=== PATIENT | male | born 1945 | race Caucasian/White ===

== ENCOUNTER 2019-11-01 11:38 | Inpatient (IN) ==
[2019-11-01] MEDS ORDERED: Acetaminophen 325 MG TABLET PO PRN (14:41)
[2019-11-01] MEDS ORDERED: Naloxone 0.4 MG/ML INJ IVP PRN (14:41)
[2019-11-01] MEDS ORDERED: Ondansetron 4 MG/2 ML VIAL IVP PRN (14:41)
[2019-11-01 16:42] LABS: Basophils % 0.1 %; Lymphocytes % 2.7 %
[2019-11-01 16:44] LABS: Hematocrit 39.8 % (37.5-50.1); Hemoglobin 13.2 g/dL (12.9-16.9); Immature Granulocytes % 1.9 % (0-4); Lymphocytes # 0.8 K/mcL (0.6-4.6); Mean Corpuscular HGB Conc 33.2 g/dL (31.6-35.5); Mean Corpuscular Hemoglobin 30.3 pg (28.0-33.3); Mean Corpuscular Volume 91.5 fL (83.0-100.0); Mean Platelet Volume 10.7 fL (9.4-12.4); Monocytes # 1.5 K/mcL (0.0-1.3); Neutrophils # 26.3 K/mcL (1.6-8.9); Platelet Count 241 K/mcL (140-400); Red Blood Count 4.35 M/mcL (4.19-5.50); Red Cell Distribution Width 15.3 % (11.5-14.5); Segmented Neutrophils % 90.3 %; White Blood Count 29.1 K/mcL (4.3-11.1)
[2019-11-01 16:49] LABS: INR 0.9; Prothrombin Time 10.5 Seconds (9.4-12.1)
[2019-11-01 17:03] LABS: Alanine Aminotransferase 17 Units/L (7-52); Albumin 3.6 g/dL (3.5-5.7); Albumin/Globulin Ratio 1.4 (1.1-2.2); Alkaline Phosphatase 47 Units/L (34-104); Aspartate Amino Transferase 23 Units/L (13-39); BUN/Creatinine Ratio 55 (6-26); Bilirubin,Direct 0.1 mg/dL (0.0-0.2); Bilirubin,Indirect 0.2 mg/dL (0.0-1.0); Bilirubin,Total 0.3 mg/dL (0.3-1.0); Blood Urea Nitrogen 42 mg/dL (8-23); Calcium 9.1 mg/dL (8.6-10.3); Carbon Dioxide 28 mEq/L (23-29); Chloride 96 mEq/L (98-107); Globulin 2.6 g/dL (2.4-3.5); Glucose 98 mg/dL (70-105); Magnesium 2.1 mg/dL (1.6-2.6); Osmolality,Calculated 282 (280-300); Potassium 5.4 mEq/L (3.5-5.1); Sodium 131 mEq/L (136-145); Total Protein 6.2 g/dL (6.4-8.9); eGFR For African Americans > 60 (> 60); eGFR For Non-African Americans > 60 (> 60)
[2019-11-01] MEDS ORDERED: Pantoprazole 40 MG VIAL IVP ONE (17:53)
[2019-11-01] MEDS: MethylPREDNISolone 40 MG/ML VIAL IVP SCH (18:15)
[2019-11-01] MEDS ORDERED: Levalbuterol Neb 0.63 MG/3 ML ONE (18:26)
[2019-11-01] MEDS: Levalbuterol Neb 0.63 MG/3 ML IH SCH ×2 (18:27→22:01)
[2019-11-01 19:40] LABS: Adenovirus Not Detected (Not Detect); Bordetella Pertussis Not Detected (Not Detect); Chlamydophila pneumoniae Not Detected (Not Detect); Coronavirus 229E Not Detected (Not Detect); Coronavirus HKU1 Not Detected (Not Detect); Coronavirus NL63 Not Detected (Not Detect); Coronavirus OC43 Not Detected (Not Detect); Human Metapneumovirus Not Detected (Not Detect); Human Rhinovirus/Enterovirus Not Detected (Not Detect); Influenza B Not Detected (Not Detect); Mycoplasma pneumoniae Not Detected (Not Detect); Parainfluenza Virus 1 Not Detected (Not Detect); Parainfluenza Virus 2 Not Detected (Not Detect); Parainfluenza Virus 3 Not Detected (Not Detect); Parainfluenza Virus 4 Not Detected (Not Detect); Respiratory Syncytial Virus Not Detected (Not Detect)
[2019-11-01 19:44] LABS: Influenza A Subtype 2009 H1 DETECTED (Not Detect)
[2019-11-01] MEDS ORDERED: Levalbuterol Neb 0.63 MG/3 ML IH SCH (22:00)
[2019-11-01] MEDS: Budesonide Neb 0.5 MG/2 ML IH SCH (22:01)
[2019-11-02 01:01] LABS: Basophils % 0.1 %; Immature Granulocytes % 1.7 % (0-4); Monocytes % 4.5 %; Red Cell Distribution Width 15.4 % (11.5-14.5)
[2019-11-02 01:03] LABS: Hematocrit 39.4 % (37.5-50.1); Hemoglobin 13.8 g/dL (12.9-16.9); Lymphocytes # 0.7 K/mcL (0.6-4.6); Lymphocytes % 2.9 %; Mean Corpuscular Volume 88.5 fL (83.0-100.0); Mean Platelet Volume 10.3 fL (9.4-12.4); Neutrophils # 23.2 K/mcL (1.6-8.9); Platelet Count 247 K/mcL (140-400); Red Blood Count 4.45 M/mcL (4.19-5.50); Segmented Neutrophils % 90.8 %; White Blood Count 25.6 K/mcL (4.3-11.1)
[2019-11-02 01:04] LABS: INR 0.9; Prothrombin Time 10.2 Seconds (9.4-12.1)
[2019-11-02 01:08] LABS: Monocytes # 1.2 K/mcL (0.0-1.3)
[2019-11-02 01:23] LABS: BUN/Creatinine Ratio 43 (6-26); Blood Urea Nitrogen 34 mg/dL (8-23); Calcium 8.9 mg/dL (8.6-10.3); Carbon Dioxide 28 mEq/L (23-29); Chloride 99 mEq/L (98-107); Glucose 124 mg/dL (70-105); Magnesium 2.1 mg/dL (1.6-2.6); Osmolality,Calculated 287 (280-300); Potassium 4.6 mEq/L (3.5-5.1); Sodium 134 mEq/L (136-145); eGFR For African Americans > 60 (> 60); eGFR For Non-African Americans > 60 (> 60)
[2019-11-02 01:41] LABS: Platelet Estimate Normal (Normal)
[2019-11-02] MEDS: Levalbuterol Neb 0.63 MG/3 ML IH SCH ×4 (03:55→22:08)
[2019-11-02] MEDS: *HR* Heparin 5,000 UNIT/ML VIAL SQ SCH ×2 (06:33→13:44)
[2019-11-02] MEDS: MethylPREDNISolone 40 MG/ML VIAL IVP SCH ×2 (06:33→17:11)
[2019-11-02] MEDS: Nicotine 14 MG PATCH.TD24 TD SCH (09:13)
[2019-11-02] MEDS: Ipratropium Neb 0.5 MG NEBULIZER IH SCH ×3 (10:39→22:07)
[2019-11-02] MEDS: Budesonide Neb 0.5 MG/2 ML IH SCH ×2 (10:39→22:07)
[2019-11-02] MEDS: Azithromycin 250 MG TABLET PO SCH (13:43)
[2019-11-02] MEDS ORDERED: *HR* LORazepam 2 MG/ML VIAL IVP ONE (14:11)
[2019-11-02] MEDS ORDERED: Furosemide 40 MG/4 ML VIAL IVP ONE (16:58)
[2019-11-02] MEDS ORDERED: *HR* LORazepam 2 MG/ML VIAL IVP PRN (17:37)
[2019-11-02] MEDS: *HR* Metoprolol 5 MG/5 ML VIAL IVP PRN (18:02)
[2019-11-02] MEDS ORDERED: Perflutren Lipid Microsphere 1.3 ML in 0.9 % Sodium Chloride 8.7 ML IVP ONE (18:16)
[2019-11-02] MEDS ORDERED: *HR* Heparin 5,000 UNIT/ML VIAL IVP ONE (18:37)
[2019-11-02] MEDS ORDERED: *HR* Heparin 5,000 UNIT/ML VIAL IVP PRN ×2 (18:37)
[2019-11-02] MEDS: Heparin 25,000 UNIT/250 ML D5W 25,000 UNIT/250 ML IV.SOLN IVC SCH (19:12)
[2019-11-02 19:13] LABS: Red Cell Distribution Width 15.2 % (11.5-14.5)
[2019-11-02 19:15] LABS: Hematocrit 41.3 % (37.5-50.1); Hemoglobin 13.9 g/dL (12.9-16.9); Mean Corpuscular HGB Conc 33.7 g/dL (31.6-35.5); Mean Corpuscular Hemoglobin 30.7 pg (28.0-33.3); Mean Corpuscular Volume 91.2 fL (83.0-100.0); Mean Platelet Volume 10.6 fL (9.4-12.4); Platelet Count 271 K/mcL (140-400); Red Blood Count 4.53 M/mcL (4.19-5.50)
[2019-11-02 19:16] LABS: Heparin anti-factor XA UFH 0.24 IU/mL (0.30-0.70)
[2019-11-02 19:17] LABS: INR 0.9
[2019-11-03 02:45] LABS: BUN/Creatinine Ratio 41 (6-26); Blood Urea Nitrogen 34 mg/dL (8-23); Calcium 8.9 mg/dL (8.6-10.3); Carbon Dioxide 32 mEq/L (23-29); Chloride 95 mEq/L (98-107); Glucose 139 mg/dL (70-105); Osmolality,Calculated 290 (280-300); Potassium 4.4 mEq/L (3.5-5.1); Sodium 135 mEq/L (136-145); eGFR For African Americans > 60 (> 60); eGFR For Non-African Americans > 60 (> 60)
[2019-11-03 02:56] LABS: Basophils % 0.1 %; Hematocrit 38.9 % (37.5-50.1); Hemoglobin 12.9 g/dL (12.9-16.9); Lymphocytes # 0.8 K/mcL (0.6-4.6); Lymphocytes % 4.4 %; Mean Corpuscular HGB Conc 33.2 g/dL (31.6-35.5); Mean Corpuscular Hemoglobin 30.4 pg (28.0-33.3); Mean Corpuscular Volume 91.5 fL (83.0-100.0); Mean Platelet Volume 11.1 fL (9.4-12.4); Monocytes # 0.9 K/mcL (0.0-1.3); Monocytes % 4.8 %; Neutrophils # 16.7 K/mcL (1.6-8.9); Platelet Count 237 K/mcL (140-400); Red Blood Count 4.25 M/mcL (4.19-5.50); Red Cell Distribution Width 15.2 % (11.5-14.5); Segmented Neutrophils % 89.7 %; White Blood Count 18.6 K/mcL (4.3-11.1)
[2019-11-03] MEDS: Levalbuterol Neb 0.63 MG/3 ML IH SCH ×4 (04:10→22:21)
[2019-11-03] MEDS: Ipratropium Neb 0.5 MG NEBULIZER IH SCH ×4 (04:10→22:21)
[2019-11-03] MEDS: MethylPREDNISolone 40 MG/ML VIAL IVP SCH ×2 (06:19→17:03)
[2019-11-03] MEDS: Azithromycin 250 MG TABLET PO SCH (09:40)
[2019-11-03] MEDS: Nicotine 14 MG PATCH.TD24 TD SCH (09:40)
[2019-11-03] MEDS: Budesonide Neb 0.5 MG/2 ML IH SCH ×2 (10:32→22:21)
[2019-11-03] MEDS ORDERED: DilTIAZem CD (24hr) 180 MG CAP.ER.24H PO SCH (13:15)
[2019-11-03] MEDS: *HR* Metoprolol 5 MG/5 ML VIAL IVP PRN (17:03)
[2019-11-03] MEDS ORDERED: *HR* Warfarin 3 MG TABLET PO ONE (18:00)
[2019-11-03] MEDS ORDERED: Warfarin perPT PO PRN (18:00)
[2019-11-04 02:34] LABS: Basophils % 0.1 %; Hematocrit 37.1 % (37.5-50.1); Hemoglobin 12.8 g/dL (12.9-16.9); Immature Granulocytes % 0.6 % (0-4); Mean Corpuscular HGB Conc 34.5 g/dL (31.6-35.5); Mean Corpuscular Hemoglobin 30.5 pg (28.0-33.3); Mean Corpuscular Volume 88.5 fL (83.0-100.0); Mean Platelet Volume 11.3 fL (9.4-12.4); Monocytes # 0.9 K/mcL (0.0-1.3); Monocytes % 6.1 %; Neutrophils # 12.2 K/mcL (1.6-8.9); Platelet Count 264 K/mcL (140-400); Red Blood Count 4.19 M/mcL (4.19-5.50); Red Cell Distribution Width 14.9 % (11.5-14.5); Segmented Neutrophils % 86.2 %; White Blood Count 14.2 K/mcL (4.3-11.1)
[2019-11-04 02:53] LABS: BUN/Creatinine Ratio 46 (6-26); Blood Urea Nitrogen 33 mg/dL (8-23); Calcium 8.8 mg/dL (8.6-10.3); Carbon Dioxide 32 mEq/L (23-29); Glucose 131 mg/dL (70-105); Osmolality,Calculated 289 (280-300); Potassium 4.8 mEq/L (3.5-5.1); Sodium 135 mEq/L (136-145); eGFR For African Americans > 60 (> 60); eGFR For Non-African Americans > 60 (> 60)
[2019-11-04 02:55] LABS: Chloride 94 mEq/L (98-107)
[2019-11-04] MEDS: Ipratropium Neb 0.5 MG NEBULIZER IH SCH ×4 (03:54→22:05)
[2019-11-04] MEDS: Levalbuterol Neb 0.63 MG/3 ML IH SCH ×4 (03:55→22:05)
[2019-11-04] MEDS: MethylPREDNISolone 40 MG/ML VIAL IVP SCH ×2 (05:06→17:25)
[2019-11-04] MEDS: Azithromycin 250 MG TABLET PO SCH (08:17)
[2019-11-04] MEDS: Aspirin Enteric Coated 81 MG Tablet PO SCH (08:17)
[2019-11-04] MEDS: Nicotine 14 MG PATCH.TD24 TD SCH (08:18)
[2019-11-04] MEDS: DilTIAZem CD (24hr) 240 MG CAP.ER.24H PO SCH (08:18)
[2019-11-04] MEDS: Budesonide Neb 0.5 MG/2 ML IH SCH ×2 (10:55→22:05)
[2019-11-04] MEDS ORDERED: Furosemide 20 MG/2 ML VIAL IVP ONE (13:28)
[2019-11-04] MEDS: Heparin 25,000 UNIT/250 ML D5W 25,000 UNIT/250 ML IV.SOLN IVC SCH ×2 (13:55→21:28)
[2019-11-04] MEDS ORDERED: *HR* Warfarin 3 MG TABLET PO ONE (18:00)
[2019-11-05 00:35] LABS: Basophils % 0.3 %; Hematocrit 37.3 % (37.5-50.1); Hemoglobin 12.4 g/dL (12.9-16.9); Immature Granulocytes % 0.7 % (0-4); Lymphocytes # 0.8 K/mcL (0.6-4.6); Lymphocytes % 5.5 %; Mean Corpuscular HGB Conc 33.2 g/dL (31.6-35.5); Mean Corpuscular Hemoglobin 30.3 pg (28.0-33.3); Mean Corpuscular Volume 91.2 fL (83.0-100.0); Mean Platelet Volume 10.5 fL (9.4-12.4); Monocytes # 0.5 K/mcL (0.0-1.3); Monocytes % 3.2 %; Neutrophils # 13.2 K/mcL (1.6-8.9); Platelet Count 250 K/mcL (140-400); Red Blood Count 4.09 M/mcL (4.19-5.50); Red Cell Distribution Width 14.5 % (11.5-14.5); Segmented Neutrophils % 90.3 %; White Blood Count 14.6 K/mcL (4.3-11.1)
[2019-11-05 00:36] LABS: INR 1.5
[2019-11-05 00:45] LABS: BUN/Creatinine Ratio 44 (6-26); Blood Urea Nitrogen 31 mg/dL (8-23); Calcium 8.7 mg/dL (8.6-10.3); Carbon Dioxide 31 mEq/L (23-29); Chloride 93 mEq/L (98-107); Glucose 205 mg/dL (70-105); Osmolality,Calculated 280 (280-300); Potassium 4.4 mEq/L (3.5-5.1); Sodium 129 mEq/L (136-145); eGFR For African Americans > 60 (> 60); eGFR For Non-African Americans > 60 (> 60)
[2019-11-05 01:12] LABS: Triiodothyronine (T3) Free 2.31 pg/mL (2.50-3.90)
[2019-11-05 01:17] LABS: Triiodothyronine (T3) Total 0.76 ng/mL (0.87-1.78)
[2019-11-05] MEDS: Ipratropium Neb 0.5 MG NEBULIZER IH SCH ×4 (03:46→21:46)
[2019-11-05] MEDS: Levalbuterol Neb 0.63 MG/3 ML IH SCH ×4 (03:46→21:46)
[2019-11-05] MEDS: MethylPREDNISolone 40 MG/ML VIAL IVP SCH ×2 (05:51→17:22)
[2019-11-05] MEDS: DilTIAZem CD (24hr) 240 MG CAP.ER.24H PO SCH (07:48)
[2019-11-05] MEDS: Nicotine 14 MG PATCH.TD24 TD SCH (07:48)
[2019-11-05] MEDS: Azithromycin 250 MG TABLET PO SCH (07:48)
[2019-11-05] MEDS: Aspirin Enteric Coated 81 MG Tablet PO SCH (07:48)
[2019-11-05] MEDS: 0.9 % Sodium Chloride 1,000 ML IVC SCH (09:47)
[2019-11-05] MEDS ORDERED: Furosemide 20 MG/2 ML VIAL IVP ONE (10:29)
[2019-11-05] MEDS: Budesonide Neb 0.5 MG/2 ML IH SCH ×2 (10:50→21:46)
[2019-11-05 17:13] LABS: BUN/Creatinine Ratio 38 (6-26); Blood Urea Nitrogen 28 mg/dL (8-23); Calcium 8.9 mg/dL (8.6-10.3); Carbon Dioxide 30 mEq/L (23-29); Chloride 94 mEq/L (98-107); Glucose 146 mg/dL (70-105); Osmolality,Calculated 276 (280-300); Potassium 4.7 mEq/L (3.5-5.1); Sodium 129 mEq/L (136-145); eGFR For African Americans > 60 (> 60); eGFR For Non-African Americans > 60 (> 60)
[2019-11-05] MEDS ORDERED: *HR* Warfarin 3 MG TABLET PO ONE (18:00)
[2019-11-05] MEDS: Heparin 25,000 UNIT/250 ML D5W 25,000 UNIT/250 ML IV.SOLN IVC SCH (20:15)
[2019-11-06 02:10] LABS: INR 3.3
[2019-11-06 02:13] LABS: Basophils # 0.1 K/mcL (0.0-0.2); Basophils % 0.3 %; Hematocrit 36.5 % (37.5-50.1); Hemoglobin 12.3 g/dL (12.9-16.9); Immature Granulocytes % 1.8 % (0-4); Lymphocytes # 1.1 K/mcL (0.6-4.6); Lymphocytes % 5.3 %; Mean Corpuscular HGB Conc 33.7 g/dL (31.6-35.5); Mean Corpuscular Hemoglobin 30.4 pg (28.0-33.3); Mean Corpuscular Volume 90.1 fL (83.0-100.0); Mean Platelet Volume 10.9 fL (9.4-12.4); Monocytes # 0.8 K/mcL (0.0-1.3); Monocytes % 3.8 %; Neutrophils # 18.1 K/mcL (1.6-8.9); Platelet Count 273 K/mcL (140-400); Red Blood Count 4.05 M/mcL (4.19-5.50); Red Cell Distribution Width 14.2 % (11.5-14.5); Segmented Neutrophils % 88.8 %; White Blood Count 20.4 K/mcL (4.3-11.1)
[2019-11-06 02:23] LABS: BUN/Creatinine Ratio 41 (6-26); Blood Urea Nitrogen 28 mg/dL (8-23); Calcium 8.7 mg/dL (8.6-10.3); Carbon Dioxide 26 mEq/L (23-29); Chloride 96 mEq/L (98-107); Glucose 130 mg/dL (70-105); Osmolality,Calculated 275 (280-300); Potassium 4.6 mEq/L (3.5-5.1); Sodium 129 mEq/L (136-145); eGFR For African Americans > 60 (> 60); eGFR For Non-African Americans > 60 (> 60)
[2019-11-06] MEDS: 0.9 % Sodium Chloride 1,000 ML IVC SCH (02:30)
[2019-11-06] MEDS: Levalbuterol Neb 0.63 MG/3 ML IH SCH ×2 (03:13→10:10)
[2019-11-06] MEDS: Ipratropium Neb 0.5 MG NEBULIZER IH SCH ×2 (03:13→10:10)
[2019-11-06] MEDS: MethylPREDNISolone 40 MG/ML VIAL IVP SCH (06:17)
[2019-11-06] MEDS ORDERED: 0.9 % Sodium Chloride 1,000 ML IVC SCH (06:34)
[2019-11-06] MEDS: Azithromycin 250 MG TABLET PO SCH (07:08)
[2019-11-06] MEDS: Aspirin Enteric Coated 81 MG Tablet PO SCH (07:08)
[2019-11-06] MEDS: Nicotine 14 MG PATCH.TD24 TD SCH (07:08)
[2019-11-06] MEDS: DilTIAZem CD (24hr) 240 MG CAP.ER.24H PO SCH (07:08)
[2019-11-06 07:47] VITALS: BP 151/78
[2019-11-06] MEDS: Budesonide Neb 0.5 MG/2 ML IH SCH (10:09)
== END 2019-11-06 10:54 | disposition home or self-care (01) | DRG 193 ==
LOC: 2NNU → SUATTDRO 14:41 → 2ANU 11-04 14:53
PROVIDERS: ADMIT Pharmacist; ATTEND Internal Medicine

== ENCOUNTER 2022-02-10 08:30 | Inpatient (IN) ==
[2022-02-10] MEDS ORDERED: *HR* Rocuronium Bromide 50 MG/5 ML VIAL ONE (08:31)
[2022-02-10] MEDS ORDERED: *HR* Propofol 200 MG/20 ML VIAL IVP ONE (08:31)
[2022-02-10] MEDS ORDERED: Lidocaine HCL 4 ML Topical Solution (Laryng-O-Jet Kit Sterile Pak) TP ONE (08:31)
[2022-02-10] MEDS ORDERED: Lidocaine -MPF 2% 2 ML VIAL ONE (08:31)
[2022-02-10] MEDS ORDERED: Ondansetron 4 MG/2 ML VIAL ONE (08:31)
[2022-02-10] MEDS ORDERED: *HR* Succinylcholine 200 MG/10 ML VIAL IVP ONE (08:31)
[2022-02-10] MEDS: Ringers Solution, Lactated 1,000 ML IVC SCH (09:25)
[2022-02-10] MEDS ORDERED: *HR* FentaNYL (PF) 100 MCG/2 ML VIAL ONE (10:15)
[2022-02-10] MEDS ORDERED: EPHEDrine 50 MG/ML VIAL ONE (10:28)
[2022-02-10] MEDS ORDERED: Naloxone 0.4 MG/ML INJ IVP PRN (15:41)
[2022-02-10] MEDS ORDERED: Ipratropium Neb 0.5 MG NEBULIZER IH SCH (16:00)
[2022-02-10] MEDS ORDERED: Levalbuterol Neb 0.63 MG/3 ML IH SCH (16:00)
[2022-02-10] MEDS ORDERED: Lidocaine -MPF 1% 5 ML AMPUL ONE (16:04)
[2022-02-10] MEDS ORDERED: *HR* FentaNYL (PF) 100 MCG/2 ML VIAL IVP ONE (16:15)
[2022-02-10] MEDS ORDERED: *HR* FentaNYL (PF) 100 MCG/2 ML VIAL IVP PRN (17:04)
[2022-02-10] MEDS ORDERED: *HR* Warfarin 3 MG TABLET PO SCH (18:00)
[2022-02-10] MEDS: *HR* Heparin 5,000 UNIT/ML VIAL SQ SCH ×2 (18:20→20:29)
[2022-02-11] MEDS: Ipratropium/Albuterol Neb 3 ML IH SCH ×4 (04:04→22:32)
[2022-02-11 04:30] LABS: Hematocrit 44.2 % (37.5-50.1); Hemoglobin 14.8 g/dL (12.9-16.9); Mean Corpuscular HGB Conc 33.5 g/dL (31.6-35.5); Mean Corpuscular Hemoglobin 30.2 pg (28.0-33.3); Mean Corpuscular Volume 90.2 fL (83.0-100.0); Mean Platelet Volume 10.7 fL (9.4-12.4); Platelet Count 277 K/mcL (140-400); White Blood Count 20.9 K/mcL (4.3-11.1)
[2022-02-11 04:44] LABS: BUN/Creatinine Ratio 27 (6-26); Blood Urea Nitrogen 27 mg/dL (8-23); Calcium 9.5 mg/dL (8.6-10.3); Carbon Dioxide 29 mEq/L (23-29); Chloride 101 mEq/L (98-107); Glucose 122 mg/dL (70-105); Osmolality,Calculated 292 (280-300); Potassium 5.5 mEq/L (3.5-5.1); Sodium 138 mEq/L (136-145); eGFR For African Americans > 60 (> 60); eGFR For Non-African Americans > 60 (> 60)
[2022-02-11] MEDS: Ringers Solution, Lactated 1,000 ML IVC SCH (05:27)
[2022-02-11] MEDS ORDERED: Insulin Human Regular 5 UNIT in 0.9 % Sodium Chloride 10 ML IV ONE (05:53)
[2022-02-11] MEDS ORDERED: Calcium Gluconate 1gm/50mL 1 GM/50 ML BAG IVPB ONE (05:53)
[2022-02-11] MEDS ORDERED: *HR* Dextrose 50 % in Water (Syg) 50 ML SYRINGE IVP ONE (05:54)
[2022-02-11] MEDS ORDERED: Nicotine 14 MG PATCH.TD24 TD SCH (09:00)
[2022-02-11] MEDS ORDERED: Aspirin Enteric Coated 81 MG Tablet PO SCH (09:00)
[2022-02-11] MEDS ORDERED: DilTIAZem CD (24hr) 240 MG CAP.ER.24H PO SCH (09:00)
[2022-02-11] MEDS ORDERED: lisinopriL 10 MG TABLET PO SCH (09:00)
[2022-02-11] MEDS ORDERED: Acetaminophen 325 MG TABLET PO PRN (09:04)
[2022-02-11] MEDS ORDERED: Budesonide/Formoterol 160/4.5 1 PUFF INH IH SCH (10:00)
[2022-02-11] MEDS ORDERED: Naloxone 0.4 MG/ML INJ IVP PRN (10:31)
[2022-02-11] MEDS ORDERED: *HR* FentaNYL (PF) 100 MCG/2 ML VIAL IVP PRN (10:31)
[2022-02-11] MEDS ORDERED: *HR* Warfarin 3 MG TABLET PO SCH (18:00)
[2022-02-11] MEDS ORDERED: Apixaban 5 MG TABLET PO SCH (21:00)
[2022-02-11] MEDS: Budesonide/Formoterol 160/4.5 1 PUFF INH IH SCH (22:32)
[2022-02-11] MEDS: Acetaminophen 325 MG TABLET PO PRN (22:51)
[2022-02-12 03:04] LABS: Hematocrit 39.9 % (37.5-50.1); Hemoglobin 13.5 g/dL (12.9-16.9); Mean Corpuscular HGB Conc 33.8 g/dL (31.6-35.5); Mean Corpuscular Hemoglobin 30.9 pg (28.0-33.3); Mean Corpuscular Volume 91.3 fL (83.0-100.0); Mean Platelet Volume 10.8 fL (9.4-12.4); Platelet Count 247 K/mcL (140-400); Red Blood Count 4.37 M/mcL (4.19-5.50); Red Cell Distribution Width 14.2 % (11.5-14.5); White Blood Count 16.5 K/mcL (4.3-11.1)
[2022-02-12] MEDS: Ipratropium/Albuterol Neb 3 ML IH SCH ×4 (03:09→22:55)
[2022-02-12 03:28] LABS: Magnesium 1.8 mg/dL (1.6-2.6); Phosphorous 3.5 mg/dL (2.7-4.5)
[2022-02-12 03:32] LABS: BUN/Creatinine Ratio 31 (6-26); Blood Urea Nitrogen 33 mg/dL (8-23); Calcium 9.3 mg/dL (8.6-10.3); Carbon Dioxide 29 mEq/L (23-29); Chloride 101 mEq/L (98-107); Glucose 114 mg/dL (70-105); Osmolality,Calculated 296 (280-300); Potassium 4.8 mEq/L (3.5-5.1); Sodium 139 mEq/L (136-145); eGFR For African Americans > 60 (> 60); eGFR For Non-African Americans > 60 (> 60)
[2022-02-12] MEDS ORDERED: Magnesium Sulfate 1 GM/102 ML PIGGYBACK IVPB ONE (05:00)
[2022-02-12] MEDS: Acetaminophen 325 MG TABLET PO PRN ×2 (07:38→16:56)
[2022-02-12] MEDS: DilTIAZem CD (24hr) 240 MG CAP.ER.24H PO SCH (07:38)
[2022-02-12] MEDS: Budesonide/Formoterol 160/4.5 1 PUFF INH IH SCH ×2 (12:06→22:55)
[2022-02-13] MEDS: Ipratropium/Albuterol Neb 3 ML IH SCH ×4 (04:03→21:52)
[2022-02-13] MEDS: DilTIAZem CD (24hr) 240 MG CAP.ER.24H PO SCH (08:13)
[2022-02-13] MEDS: Acetaminophen 325 MG TABLET PO PRN ×2 (08:13→20:14)
[2022-02-13] MEDS ORDERED: *HR* Metoprolol 5 MG/5 ML VIAL IVP ONE (09:00)
[2022-02-13] MEDS: Budesonide/Formoterol 160/4.5 1 PUFF INH IH SCH ×2 (10:14→21:52)
[2022-02-13 11:37] LABS: Basophils # 0.1 K/mcL (0.0-0.2); Basophils % 0.4 %; Eosinophils # 0.1 K/mcL (0.0-0.6); Eosinophils % 0.6 %; Hematocrit 39.3 % (37.5-50.1); Hemoglobin 13.1 g/dL (12.9-16.9); Immature Granulocytes % 0.3 % (0-4); Lymphocytes # 1.4 K/mcL (0.6-4.6); Lymphocytes % 10.5 %; Mean Corpuscular HGB Conc 33.3 g/dL (31.6-35.5); Mean Corpuscular Hemoglobin 30.8 pg (28.0-33.3); Mean Corpuscular Volume 92.3 fL (83.0-100.0); Monocytes # 1.8 K/mcL (0.0-1.3); Monocytes % 13.7 %; Platelet Count 235 K/mcL (140-400); Red Blood Count 4.26 M/mcL (4.19-5.50); Red Cell Distribution Width 14.4 % (11.5-14.5); Segmented Neutrophils % 74.5 %; White Blood Count 13.4 K/mcL (4.3-11.1)
[2022-02-13 12:00] LABS: BUN/Creatinine Ratio 21 (6-26); Blood Urea Nitrogen 21 mg/dL (8-23); Carbon Dioxide 29 mEq/L (23-29); Chloride 105 mEq/L (98-107); Glucose 83 mg/dL (70-105); Magnesium 2.1 mg/dL (1.6-2.6); Osmolality,Calculated 292 (280-300); Potassium 4.4 mEq/L (3.5-5.1); Sodium 140 mEq/L (136-145); eGFR For African Americans > 60 (> 60); eGFR For Non-African Americans > 60 (> 60)
[2022-02-14 03:20] LABS: Basophils # 0.1 K/mcL (0.0-0.2); Basophils % 0.4 %; Eosinophils # 0.2 K/mcL (0.0-0.6); Eosinophils % 1.9 %; Hemoglobin 12.5 g/dL (12.9-16.9); Immature Granulocytes % 0.5 % (0-4); Lymphocytes % 15.3 %; Mean Corpuscular HGB Conc 33.8 g/dL (31.6-35.5); Mean Corpuscular Volume 91.8 fL (83.0-100.0); Mean Platelet Volume 11.1 fL (9.4-12.4); Monocytes # 1.5 K/mcL (0.0-1.3); Monocytes % 11.8 %; Neutrophils # 8.9 K/mcL (1.6-8.9); Platelet Count 231 K/mcL (140-400); Red Blood Count 4.03 M/mcL (4.19-5.50); Red Cell Distribution Width 14.4 % (11.5-14.5); Segmented Neutrophils % 70.1 %; White Blood Count 12.7 K/mcL (4.3-11.1)
[2022-02-14 03:34] LABS: BUN/Creatinine Ratio 32 (6-26); Blood Urea Nitrogen 27 mg/dL (8-23); Calcium 8.8 mg/dL (8.6-10.3); Carbon Dioxide 29 mEq/L (23-29); Chloride 104 mEq/L (98-107); Glucose 115 mg/dL (70-105); Osmolality,Calculated 294 (280-300); Potassium 3.8 mEq/L (3.5-5.1); Sodium 139 mEq/L (136-145); eGFR For African Americans > 60 (> 60); eGFR For Non-African Americans > 60 (> 60)
[2022-02-14] MEDS: Ipratropium/Albuterol Neb 3 ML IH SCH ×4 (03:45→21:07)
[2022-02-14] MEDS: DilTIAZem CD (24hr) 240 MG CAP.ER.24H PO SCH (08:24)
[2022-02-14] MEDS: Acetaminophen 325 MG TABLET PO PRN ×2 (08:26→23:05)
[2022-02-14] MEDS: Budesonide/Formoterol 160/4.5 1 PUFF INH IH SCH ×2 (10:44→21:07)
[2022-02-15] MEDS: Ipratropium/Albuterol Neb 3 ML IH SCH ×2 (03:46→10:29)
[2022-02-15 04:16] LABS: Basophils # 0.1 K/mcL (0.0-0.2); Basophils % 0.4 %; Eosinophils # 0.3 K/mcL (0.0-0.6); Eosinophils % 2.3 %; Hematocrit 37.1 % (37.5-50.1); Hemoglobin 12.4 g/dL (12.9-16.9); Immature Granulocytes % 0.3 % (0-4); Lymphocytes # 1.6 K/mcL (0.6-4.6); Lymphocytes % 13.9 %; Mean Corpuscular HGB Conc 33.4 g/dL (31.6-35.5); Mean Corpuscular Hemoglobin 30.9 pg (28.0-33.3); Mean Corpuscular Volume 92.5 fL (83.0-100.0); Mean Platelet Volume 10.9 fL (9.4-12.4); Monocytes # 1.4 K/mcL (0.0-1.3); Monocytes % 12.3 %; Neutrophils # 8.3 K/mcL (1.6-8.9); Platelet Count 232 K/mcL (140-400); Red Blood Count 4.01 M/mcL (4.19-5.50); Red Cell Distribution Width 14.2 % (11.5-14.5); Segmented Neutrophils % 70.8 %; White Blood Count 11.7 K/mcL (4.3-11.1)
[2022-02-15 04:31] LABS: BUN/Creatinine Ratio 31 (6-26); Blood Urea Nitrogen 27 mg/dL (8-23); Calcium 8.5 mg/dL (8.6-10.3); Carbon Dioxide 30 mEq/L (23-29); Chloride 104 mEq/L (98-107); Glucose 121 mg/dL (70-105); Osmolality,Calculated 294 (280-300); Potassium 4.2 mEq/L (3.5-5.1); Sodium 139 mEq/L (136-145); eGFR For African Americans > 60 (> 60); eGFR For Non-African Americans > 60 (> 60)
[2022-02-15] MEDS: DilTIAZem CD (24hr) 240 MG CAP.ER.24H PO SCH (08:47)
[2022-02-15] MEDS: Budesonide/Formoterol 160/4.5 1 PUFF INH IH SCH (10:29)
[2022-02-15 11:33] VITALS: BP 148/83; TEMP 98.4; O2SAT 100
[2022-02-15 13:38] VITALS: PULSE 81
== END 2022-02-15 15:30 | disposition home health service (06) | DRG 163 ==
LOC: SAMDAY 08:30 → EDSTATUS 08:50 → ICNU 11:32 → 2NNU 02-11 08:55
PROVIDERS: ADMIT Internal Medicine; ATTEND Internal Medicine Pulmonary Disease